=== PATIENT | female | born 1950 | race Caucasian/White ===

== ENCOUNTER 2020-05-13 13:36 | Outpatient (CLI) | payer MEDICARE, OTHER, SELFPAY ==
--- NOTE | ~2020-05-13 | DEXA_ITS ---
Bone Density Report Name: Elaine Kruse Age: 69 Sex: Female Ethnicity: White Date of : 1950 Indication: osteopenia; height loss; cancer; Referring Provider: KRZYSZTOF ALCAZAR Study: Bone densitometry was performed. Exam Date: May 13, 2020 Accession number: [id number] Bone Density: Region BMD T-score Z-score Classification AP Spine (L1-L4) 0.898 -1.4 0.9 Osteopenia Femoral Neck (Left) 0.748 -0.9 1.0 Normal Total Hip (Left) 0.812 -1.1 0.5 Osteopenia Total Hip Bilateral Avg 0.824 -1.0 0.6 Osteopenia Femoral Neck (Right) 0.727 -1.1 0.8 Osteopenia Total Hip (Right) 0.835 -0.9 0.7 Normal World Health Organization criteria for BMD impression classify patients as: Normal (T-score at or above -1.0), Osteopenia (T-score between -1.0 and -2.5), or Osteoporosis (T-score at or below -2.5). 10-year Fracture Risk(1): Major Osteoporotic Fracture 9.1% Hip Fracture 1.1% Reported Risk Factors: [place] (), Neck BMD=0.727, BMI=30.5 (1) FRAX(R) Version 3.08. Fracture probability calculated for an untreated patient. Fracture probability may be lower if the patient has received treatment. Previous Exams: Region Exam Age BMD T-score BMD Change BMD Change Date g/cm2 vs Baseline vs Previous AP Spine(L1-L4) 05/13/2020 69 0.898 -1.4 0.051(6.0%)# 0.003(0.3%) 07/01/2017 66 0.895 -1.4 0.048(5.6%)# -0.027(-2.9%)* 06/20/2015 64 0.922 -1.1 0.074(8.8%)# 0.030(3.4%)# 06/09/2011 60 0.892 -1.4 0.044(5.2%)* 0.044(5.2%)* 08/15/2003 52 0.848 -1.8 Total Hip(Left) 05/13/2020 69 0.812 -1.1 -0.013(-1.6%)# -0.017(-2.0%) 07/01/2017 66 0.829 -0.9 0.004(0.5%)# -0.050(-5.7%)* 06/20/2015 64 0.879 -0.5 0.054(6.6%)# 0.076(9.5%)# 06/09/2011 60 0.803 -1.1 -0.022(-2.7%) -0.043(-5.0%)* 08/20/2003 52 0.846 -0.8 0.020(2.5%) 0.016(2.0%) 08/20/2003 52 0.829 -0.9 0.004(0.5%) 0.004(0.5%) 08/15/2003 52 0.825 -1.0 Total Hip(Right) 05/13/2020 69 0.835 -0.9 N/A -0.6% 07/01/2017 66 0.840 -0.8 N/A -9.8%* 06/20/2015 64 0.931 -0.1 N/A 9.9%# 06/09/2011 60 0.847 -0.8 N/A -1.8% 08/20/2003 52 0.862 -0.7 N/A -0.5% 08/20/2003 52 0.866 -0.6 N/A N/A 08/15/2003 52 N/A N/A *Denotes significance at 95% confidence level, LSC for AP Spine = 0.022 g/cm2, LSC for Total Hip = 0.027 g/cm2 Clinical Information Provided by Patient:
== END 2020-05-13 13:37 | disposition home or self-care (01) ==
LOC: ANHIMG 13:39
PROVIDERS: PCP Family Medicine; Visit Provider Obstetrics & Gynecology Gynecology
DX: Z78.0 Asymptomatic menopausal state (principal); M85.80 Other specified disorders of bone density and structure, unspecified site
CPT/HCPCS: 77080

== ENCOUNTER → 2020-10-22 02:53 | Outpatient (CLI) | payer MEDICARE, OTHER, SELFPAY ==
[2020-10-22 18:08] LABS: SARS-CoV-2 RNA PCR Negative
== END ==
PROVIDERS: PCP Family Medicine; Visit Provider Internal Medicine Gastroenterology
DX: Z01.812 Encounter for preprocedural laboratory examination (principal); Z20.822 Contact with and (suspected) exposure to COVID-19
CPT/HCPCS: C9803; U0003; U0005

== ENCOUNTER 2020-10-25 01:07 | Day surgery (SDC) | payer MEDICARE, OTHER, SELFPAY ==
[2020-10-14 10:51] VITALS: BMI 33.2
[2020-10-25 11:34] VITALS: BP 124/60; PULSE 57; RESP 18; TEMP 36.3; O2SAT 96; BMI 33.7
[2020-10-25] MEDS: LACTATED RINGERS 1,000 ML 150 ML IV CONT (11:39)
--- NOTE | 2020-10-25 11:42 | WPDANESEPPF ---
Anes - Initial Pre Proc Eval Procedure: Operation Date: 10/25/20 12:30 Proposed Procedures p Colonoscopy - Osvaldo Stanton MD Date/Time: 10/25/20 11:42 Surgeon: Osvaldo Stanton MD Pre Op Diagnosis: Diarrhea Patient Data Age: 70 Gender: F Height: 5 ft 3 in Weight: 86.3 kg Last Vital Signs Temp 97.3 F L 10/25/20 11:34 Pulse 57 L 10/25/20 11:34 Resp 18 10/25/20 11:34 BP 124/60 10/25/20 11:34 Pulse Ox 96 10/25/20 11:34 Allergies Allergy/AdvReac Type Severity Reaction Status Date / Time Sulfa (Sulfonamide Allergy Severe HIVES, Verified 10/25/20 11:32 Antibiotics) DIFF. BREATHING losartan Allergy Mild Itching Verified 10/25/20 11:32 Home Medications Medication Instructions Recorded Confirmed Type anastrozole 1 mg tablet 1 mg PO DAILY 09/20/20 10/25/20 History aspirin 81 mg tablet,delayed 81 mg PO DAILY 09/20/20 10/25/20 History release esomeprazole magnesium 20 mg 20 mg PO DAILY 09/20/20 10/25/20 History capsule,delayed release indapamide 2.5 mg tablet 2.5 mg PO DAILY 09/20/20 10/25/20 History atorvastatin 10 mg tablet 10 mg PO DAILY 09/26/20 10/25/20 History brexpiprazole 0.5 mg tablet 0.5 mg PO DAILY 09/26/20 10/25/20 History ergocalciferol (vitamin D2) 1,250 1,250 mcg PO WEEKLY 09/26/20 10/25/20 History mcg (50,000 unit) capsule escitalopram oxalate 20 mg tablet 30 mg PO DAILY tablet 09/26/20 10/25/20 History gabapentin 600 mg tablet 200 mg PO BID tablet 09/26/20 10/25/20 History calcium citrate 1,000 mg PO DAILY 10/14/20 10/25/20 History igcyfpowvkzb-oyx-wfcr-FA-vit K 1 tablet PO DAILY 10/14/20 10/25/20 History [Adults Multivitamin] Patient hx anesthesia problems: none Family hx anesthesia problems: none PMFSH Past Medical History Medical History (Updated 10/25/20 @ 11:42 by Bayron Chen MD) Cerebral infarct GERD (gastroesophageal reflux disease) Hepatitis Hyperlipidemia Hypertension TIA (transient ischemic attack) Social History Social History (Updated 09/26/20 @ 13:15 by Nan Velasco CMA) Smoking status: Never smoker Alcohol intake: never Substance use: never Substance use type: does not use Living arrangements: with family Gender identity (if verbalized by the patient): Female Spiritual care concerns: No Anes - Eval Final PreProcedure Day of Procedure 10/25/20 11:42 Patient weight: overweight Heart: regular rate and rhythm Lungs: clear to auscultation Airway: Mallampati scale class II Neurological: alert and oriented Last oral intake: >/= 8 hours ASA classification: III Emergent: no Anesthetic plan: proceed Anesthesia type and monitoring: general GIVS and standard monitoring Informed Consent: The patient's anesthetic plan and its attendant risks and benefits were discussed with the patient/family/POA. Questions were solicited and answers provided to the satisfaction of the patient/family/POA.
--- NOTE | 2020-10-25 12:51 | PM.HPGS ---
History of Present Illness History of Present Illness Consent: Risks, benefits, and alternatives have been discussed and questions answered. Patient agrees to proceed with procedure. Chief complaint: Diarrhea Narrative: Elaine Kruse is a 70 year old female with loose stools better with fiber and questran, last colonoscopy 2013 Review of Systems Constitutional: Constitutional: Denies headache(s) and Denies weakness Eyes: Eyes: Denies blurry vision ENT: Reports Normal hearing present, Denies headache(s) and Denies neck pain Cardiovascular: Cardiovascular: Denies chest pain and Denies dyspnea Respiratory: Respiratory: Denies dyspnea Gastrointestinal: Gastrointestinal: Reports no additional gastrointestinal complaints Genitourinary: Genitourinary: Denies dysuria Musculoskeletal: Musculoskeletal: Denies neck pain Integumentary/Breasts: Skin/Breast: Denies dry skin Neurologic: Reports Normal hearing present, Denies headache(s) and Denies weakness Psychiatric: Psychiatric: Denies anxiety Endocrine: Endocrine: Denies change in body appearance Hematologic/Lymphatic: Hematologic/Lymphatic: Denies easy bleeding Allergic/Immunologic: Allergic/Immunologic: Denies urticaria PMFSH Past Medical History Medical History (Updated 10/25/20 @ 11:42 by Bayron Chen MD) Cerebral infarct GERD (gastroesophageal reflux disease) Hepatitis Hyperlipidemia Hypertension TIA (transient ischemic attack) Social History Social History (Updated 09/26/20 @ 13:15 by Nan Velasco CMA) Smoking status: Never smoker Alcohol intake: never Substance use: never Substance use type: does not use Living arrangements: with family Gender identity (if verbalized by the patient): Female Spiritual care concerns: No Meds Home Medications and Allergies Home Medications Medication Instructions Recorded Confirmed Type anastrozole 1 mg tablet 1 mg PO DAILY 09/20/20 10/25/20 History aspirin 81 mg tablet,delayed 81 mg PO DAILY 09/20/20 10/25/20 History release esomeprazole magnesium 20 mg 20 mg PO DAILY 09/20/20 10/25/20 History capsule,delayed release indapamide 2.5 mg tablet 2.5 mg PO DAILY 09/20/20 10/25/20 History atorvastatin 10 mg tablet 10 mg PO DAILY 09/26/20 10/25/20 History brexpiprazole 0.5 mg tablet 0.5 mg PO DAILY 09/26/20 10/25/20 History ergocalciferol (vitamin D2) 1,250 1,250 mcg PO WEEKLY 09/26/20 10/25/20 History mcg (50,000 unit) capsule escitalopram oxalate 20 mg tablet 30 mg PO DAILY tablet 09/26/20 10/25/20 History gabapentin 600 mg tablet 200 mg PO BID tablet 09/26/20 10/25/20 History calcium citrate 1,000 mg PO DAILY 10/14/20 10/25/20 History wetlhrlgbcxf-pes-ydgc-FA-vit K 1 tablet PO DAILY 10/14/20 10/25/20 History [Adults Multivitamin] Allergies Allergy/AdvReac Type Severity Reaction Status Date / Time Sulfa (Sulfonamide Allergy Severe HIVES, Verified 10/25/20 11:32 Antibiotics) DIFF. BREATHING losartan Allergy Mild Itching Verified 10/25/20 11:32 Vital Signs Vital Signs - 24 hr 10/25/20 11:34 Temperature 97.3 F L Pulse Rate 57 L Respiratory Rate 18 Blood Pressure 124/60 Pulse Oximetry 96 Exam Const: General: comfortable and no acute distress HENMT: General nose exam: Normal nares present Eyes: General: appearance normal, both eyes and all related structures Neck: Neck: no JVD Resp: Auscultation: clear to auscultation bilaterally Cardio: Rate: regular rate Rhythm: regular rhythm GI: Inspection: non-distended GI Palp: Yes Soft to palpation Skin: General skin exam: normal color Neuro: General: gait normal Speech: normal speech Extrem: General: normal to inspection Psych: Mental Status: mental status grossly normal Assessment and Plan Assessment and plan (1) Diarrhea: Code(s): R19.7 - Diarrhea, unspecified Status: Acute Assessment and Plan: colonoscopy with random colon bx, better with medical rx
[2020-10-25 13:14] VITALS: BP 93/40; PULSE 56; RESP 18; O2SAT 98
[2020-10-25 13:24] VITALS: BP 98/50; PULSE 56; RESP 14; O2SAT 100
[2020-10-25 13:34] VITALS: BP 118/64; PULSE 54; RESP 20; O2SAT 100
== END 2020-10-25 13:47 | disposition home or self-care (01) ==
PROVIDERS: PCP Family Medicine; Visit Provider Internal Medicine Gastroenterology
PROC: 0DJD8ZZ Inspection of Lower Intestinal Tract, Via Natural or Artificial Opening Endoscopic (ICD-10-PCS; CPT 45378; principal; 2020-10-25 12:30)
DX: K52.831 Collagenous colitis (principal); K52.832 Lymphocytic colitis; K57.30 Diverticulosis of large intestine without perforation or abscess without bleeding; K64.8 Other hemorrhoids; I10 Essential (primary) hypertension; E78.5 Hyperlipidemia, unspecified; K21.9 Gastro-esophageal reflux disease without esophagitis; Z86.73 Personal history of transient ischemic attack (TIA), and cerebral infarction without residual deficits; Z79.82 Long term (current) use of aspirin; Z86.19 Personal history of other infectious and parasitic diseases
CPT/HCPCS: 45380; 88305; J2704; J7120

== ENCOUNTER → 2022-01-06 13:09 | Outpatient (CLI) | payer MEDICARE, OTHER, SELFPAY ==
--- NOTE | ~2022-01-06 | XR_ITS ---
EXAMINATION: XR chest 2V 01/06/2022 13:33 INDICATION: Shortness of breath PROCEDURE: PA and lateral views the chest COMPARISON: 12/19/2015 FINDINGS: The lungs are clear. The cardiomediastinal silhouette is within normal limits. There are no pleural effusions. There is no pneumothorax suspected. There is scoliosis. No acute osseous abno rmality. Small hiatal hernia. IMPRESSION: 1: NO ACUTE CARDIOPULMONARY DISEASE. Reviewed, dictated and finalized at location B.
== END ==
PROVIDERS: PCP Family Medicine; Visit Provider Family Medicine
DX: R06.02 Shortness of breath (principal)
CPT/HCPCS: 71046

== ENCOUNTER → 2022-05-11 09:32 | Outpatient (CLI) | payer MEDICARE, OTHER, SELFPAY ==
--- NOTE | ~2022-05-11 | XR_ITS ---
EXAMINATION: XR lumbar spine 2-3V DATE: 05/11/2022 09:58 INDICATION: Low back pain TECHNIQUE: Anteroposterior and lateral views of the lumbar spine, and cone-down lateral view of the l umbosacral junction were obtained. COMPARISON: None. FINDINGS: There are 27 degrees of thoracolumbar levoscoliosis. Bone alignment is normal. There is an age-indeterminate superior endplate compression fracture of T12. There are 2 mm of anterolisthesis of L5 on S1. There is severe loss of intervertebral disc space height at L1-2. The lumbar vertebral bod y heights are maintained. There is moderate to severe facet osteoarthritis of the lower lumbar spine. IMPRESSION: 1. Age-indeterminate T12 compression fracture. 2. Severe lumbar spondylosis. Reviewed, dictated and finalized at location A.
== END ==
PROVIDERS: PCP Family Medicine; Visit Provider Family Medicine
DX: M47.896 Other spondylosis, lumbar region (principal); S22.080A Wedge compression fracture of T11-T12 vertebra, initial encounter for closed fracture; X58.XXXA Exposure to other specified factors, initial encounter
CPT/HCPCS: 72100

== ENCOUNTER → 2022-05-28 13:39 | Outpatient (CLI) | payer MEDICARE, OTHER, SELFPAY ==
--- NOTE | ~2022-05-28 | DEXA_ITS ---
Bone Density Report Name: KERRIE AVERY Age: 71 Sex: Female Ethnicity: White Date of : 1950 Indication: postmenopausal; screening for osteoporosis; height loss; inflammatory bowel disease; history of glucocorticoids; prior fracture; cancer; Referring Provider: KRZYSZTOF ALCAZAR Study: Bone densitometry was performed. Exam Date: May 28, 2022 Accession number: [id number] Bone Density: Region BMD T-score Z-score Classification AP Spine (L1-L4) 0.905 -1.3 1.0 Osteopenia Femoral Neck (Left) 0.641 -1.9 0.1 Osteopenia Total Hip (Left) 0.786 -1.3 0.4 Osteopenia Femoral Neck (Right) 0.668 -1.6 0.4 Osteopenia Total Hip (Right) 0.781 -1.3 0.4 Osteopenia Total Hip Mean 0.784 -1.3 0.4 Osteopenia World Health Organization criteria for BMD impression classify patients as: Normal (T-score at or above -1.0), Osteopenia (T-score between -1.0 and -2.5), or Osteoporosis (T-score at or below -2.5). 10-year Fracture Risk: FRAX not reported because: Prior hip or vertebral fracture Clinical Information Provided by Patient: Have had a previous hip or vertebral fracture Has had a low trauma fracture Has taken Glucocorticoids Has used the following medications: Vitamin D, Calcium, MTV, ANASTROZOLE, BUDESONIDE Has the following medical conditions: Cancer, Inflammatory bowel diseases, LEFT BREAST CA LUMPECTOMY IN 03/2018, MICROSCOPIC COLITIS Patient maximum height was 66.0 Menopause Age: 48 Drinks caffeinated beverages Onset of menses at age 12 Number of children 2 Impression: The patient has low bone mass, based on the Left Femoral Neck T-score. The patient has risk factors, including: previous fracture, history of glucocorticoid therapy. Discussion: INCREASED RISK OF FRACTURE DUE TO HISTORY OF FRACTURE. The patient's previous fracture puts the patient at high risk of a future fracture. In untreated patients, the risk of osteoporotic fracture increases approximately two-fold for each 1.0 SD decrease in T-score. Low bone density is not the only risk factor for fracture; also consider factors such as patient's age, frailty or poor health, risk of falling, risk of injury, previous osteoporotic fracture, family history of osteoporosis, cigarette smoking, low body weight, etc. Not everyone with a low trauma fracture has osteoporosis; osteomalacia and other metabolic bone disorders should also be considered. Patients who have osteoporosis should be evaluated for specific diseases and conditions (secondary causes) that may cause or contribute to bone loss and fracture risk. National Osteoporosis Foundation (NOF) recommends pharmacologic intervention for patients with a prior hip or vertebral fracture regardless of BMD T-score. The patient should follow a healthful lifestyle (good nutrition with adequate calcium and vitamin
== END ==
PROVIDERS: PCP Family Medicine; Visit Provider Obstetrics & Gynecology Gynecology
DX: Z78.0 Asymptomatic menopausal state (principal); M85.88 Other specified disorders of bone density and structure, other site; M85.852 Other specified disorders of bone density and structure, left thigh; M85.851 Other specified disorders of bone density and structure, right thigh
CPT/HCPCS: 77080

== ENCOUNTER → 2022-11-10 14:11 | Outpatient (CLI) | payer MEDICARE, OTHER, SELFPAY ==
--- NOTE | ~2022-11-10 | XR_ITS ---
EXAM: XR shoulder RT min 2V DATE: 11/10/2022 14:31 HISTORY: M25.511 - Pain in right shoulder . COMPARISON: None available. FINDINGS: Normal mineralization. No fracture or dislocation. No lytic or blastic lesion. Joint space s are maintained. No erosion or periosteal change. Soft tissues within normal limits. IMPRESSION: Normal right shoulder radiograph findings. Reviewed, dictated and finalized at location K.
== END ==
PROVIDERS: PCP Family Medicine; Visit Provider Family Medicine
DX: M25.511 Pain in right shoulder (principal)
CPT/HCPCS: 73030

== ENCOUNTER → 2022-11-12 13:19 | Outpatient (CLI) | payer MEDICARE, OTHER, SELFPAY ==
--- NOTE | ~2022-11-12 | XR_ITS ---
EXAMINATION: XR chest 2V 11/12/2022 14:13 INDICATION: Cough PROCEDURE: 2 view chest COMPARISON: 01/06/2022 FINDINGS: The lungs are clear. Moderate size hiatal hernia. The cardiomediastinal silhouette is withi n normal limits. There are no pleural effusions. There is no pneumothorax suspected. IMPRESSION: 1: NO ACUTE CARDIOPULMONARY DISEASE. Reviewed, dictated and finalized at location L.
== END ==
PROVIDERS: PCP Family Medicine; Visit Provider Family Medicine
DX: R05.9 Cough, unspecified (principal)
CPT/HCPCS: 71046

== ENCOUNTER 2024-04-14 11:29 | Outpatient (CLI) | payer MEDICARE, OTHER, SELFPAY ==
--- NOTE | ~2024-04-14 | MM_ITS ---
EXAMINATION: MM screening anette BI w juan c HISTORY: Screening mammogram TECHNIQUE: Craniocaudal and mediolateral oblique 3-D tomosynthesis images were obtained and synthetic 2-D images were generated. CAD analysis was submitted and interpreted. COMPARISON: 01/18/2018 BREAST PARENCHYMAL COMPOSITION:Not Dense. The breasts are almost entirely fatty FINDINGS: No suspicious mass, calcification, or architectural distortion are identified in either wendy ast to suggest malignancy. There has been no suspicious interval change. IMPRESSION: No mammographic evidence of malignancy. Recommend routine screening mammography in one year. BI-RADS Category 1: Negative Reviewed, dictated and finalized at location .
== END 2024-04-14 11:30 | disposition home or self-care (01) ==
LOC: MICIMG 11:30
PROVIDERS: PCP Obstetrics & Gynecology Gynecology; Visit Provider Obstetrics & Gynecology Gynecology
DX: Z12.31 Encounter for screening mammogram for malignant neoplasm of breast (principal)
CPT/HCPCS: 77063; 77067

== ENCOUNTER 2024-08-15 10:28 | Outpatient (CLI) | payer MEDICARE, OTHER, SELFPAY ==
--- NOTE | ~2024-08-15 | XR_ITS ---
Left Knee Technique: AP, lateral, and sunrise views were obtained. Clinical History: Pain Findings: No fracture or dislocation is seen. Osseous alignment is anatomic. There is mild spurring a t the lateral joint line and patella. Soft tissues are unremarkable. No joint effusion is seen. Impression: Mild degenerative spurring, as above. Reviewed, dictated and finalized at location M. A [employer] Impression: Mild degenerative spurring, as above.
== END 2024-08-15 10:29 | disposition home or self-care (01) ==
LOC: MICIMG 10:30
PROVIDERS: PCP Family Medicine; Visit Provider Family Medicine
DX: M25.562 Pain in left knee (principal)
CPT/HCPCS: 73562

== ENCOUNTER 2024-10-04 13:16 | Outpatient (CLI) | payer MEDICARE, OTHER, SELFPAY ==
--- NOTE | ~2024-10-04 | DEXA_ITS ---
Bone Density Report Name: KERRIE AVERY Age: 74 Sex: Female Ethnicity: White Date of : 1950 Indication: osteopenia; height loss; inflammatory bowel disease; history of glucocorticoids; cancer; Referring Provider: KRZYSZTOF ALCAZAR Study: Bone densitometry was performed. Exam Date: October 04, 2024 Accession number: [id number] Bone Density: Region BMD T-score Z-score Classification AP Spine(L1-L4) 0.833 -1.9 0.5 Osteopenia Femoral Neck (Left) 0.581 -2.4 -0.3 Osteopenia Total Hip (Left) 0.722 -1.8 0.0 Osteopenia Femoral Neck (Right) 0.607 -2.2 0.0 Osteopenia Total Hip (Right) 0.689 -2.1 -0.2 Osteopenia Total Hip Mean 0.706 -2.0 -0.1 Osteopenia World Health Organization criteria for BMD impression classify patients as: Normal (T-score at or above -1.0), Osteopenia (T-score between -1.0 and -2.5), or Osteoporosis (T-score at or below -2.5). 10-year Fracture Risk(1): Major Osteoporotic Fracture 23% Hip Fracture 7.7% Reported Risk Factors: [place] (), Neck BMD=0.581, BMI=32.5, glucocorticoids (1) FRAX(R) Version 3.08. Fracture probability calculated for an untreated patient. Fracture probability may be lower if the patient has received treatment. Previous Exams: Region Exam Age BMD T-score BMD Change BMD Change Date g/cm2 vs Baseline vs Previous AP Spine (L1-L4) 10/04/2024 74 0.833 -1.9 -0.089 (-9.7%) -0.065 (-7.3%) 05/13/2020 69 0.898 -1.4 -0.024 (-2.6%) 0.003 (0.3%) 07/01/2017 66 0.895 -1.4 -0.027 (-2.9%) -0.027 (-2.9%) 06/20/2015 64 0.922 -1.1 Total Hip(Left) 10/04/2024 74 0.722 -1.8 -0.158 (-17.9% -0.090 (-11.1% 05/13/2020 69 0.812 -1.1 -0.067 (-7.6%) -0.017 (-2.0%) 07/01/2017 66 0.829 -0.9 -0.050 (-5.7%) -0.050 (-5.7%) 06/20/2015 64 0.879 -0.5 Total Hip(Right) 10/04/2024 74 0.689 -2.1 -0.242 (-26.0% -0.146 (-17.4% 05/13/2020 69 0.835 -0.9 -0.096 (-10.3% -0.005 (-0.6%) 07/01/2017 66 0.840 -0.8 -0.091 (-9.8%) -0.091 (-9.8%) 06/20/2015 64 0.931 -0.1 *Denotes significance at 95% confidence level, LSC for AP Spine = 0.022 g/cm2, LSC for Total Hip = 0.027 g/cm2 Clinical Information Provided by Patient: Has taken Glucocorticoids Has used the following medications: Vitamin D, Calcium Has the following medical conditions: Cancer, Inflammatory bowel diseases Patient maximum height was 66 Drinks caffeinated beverages Onset of menses at age 12 Number of children 2 Impression: The patient has low bone mass, based on the Left Femoral Neck T-score. The patient has an estimated ten-year risk of hip fracture of 7.7% and an estimated ten-year risk of major fracture of 23%, based on the WHO FRAX algorithm. The patient has risk factors, including: history of glucocorticoid therapy. The BMD for the AP Spine (L1-L4) decreased, changing by -7.3% since the last DXA exam. The BMD for the Total Hip(Left) decreased, changing by -11.1% since the last DXA exam. The BMD for the Total Hip(Right) decreased, changing by -17.4% since the last DXA exam. Discussion: BONE DENSITY IS LOW AT ONE OR MORE SKELETAL SITES. THE PATIENT'S BMD AND CLINICAL RISK FACTORS CONTRIBUTE TO THIS PATIENT'S HIGH RISK OF FRACTURE. This patient's lowest T-score is low at one or more skeletal sites. It meets the World Health Organization's (WHO) criteria for ?low bone mass? (T-score between -1.0 and -2.5). The patient's 10-year risk of hip fracture and 10 year risk of a major osteoporotic fracture as calculated by FRAX exceeds the threshold where pharmacological therapy is recommended by the National Osteoporosis Foundation (NOF). However, all treatment decisions require clinical judgment and consideration of individual patient factors, including patient preferences, comorbidities, previous drug use, risk factors not captured in the FRAX model (e.g., frailty, falls, vitamin D deficiency, increased bone turnover, interval significant decline in bone density) and possible under or overestimation of fracture risk by FRAX. The patient should follow a healthful lifestyle (good nutrition with adequate calcium and vitamin D, and appropriate weight-bearing exercise). Follow-Up: Consider a repeat BMD and Vertebral Fracture Assessment (VFA) exam in 2 years or sooner if medically necessary, to reassess this patient's status. Reported by: GIGI on 10/04/2024 1:51:00 PM. Reviewed, dictated and finalized at location [facility]
--- OUTSIDE RECORDS SUMMARY | 2024-10-04 14:38 | XMS_ITS | Patient Health Summary ---
Author Organization [facility] Address [address] [address] Care Team Providers Care C Software Developer Name Role Phone Rnon Mack MD Primary Care Provider [phone] Note from [facility],non-owned Affiliates and Associated Physician Practices is amultiple site organization consisting of ambulatory clinics and hospital sitesin [place], [place], [place]. This disclosure is being madepursuant to the Care Everywhere program and may not contain all information available regarding this patient. Last updated 18.[facility] Allergies * Molds & Smuts(Itching) -Low Criticality * Sulfa Drugs(Skin Reactions,Shortness of Breath) -High Criticality Active Problems Problem Noted Date Diagnosed Date Hyperlipidemia 04/08/2012 Major depressive disorder, single episode 2011 Recurrent major depressive disorder 04/08/2012 Aphasia 04/08/2012 Social History Tobacco Use Types Packs/Day Years Used Date Smoking Tobacco: Never Smokeless Tobacco: Never Alcohol Use Standard Drinks/Week Comments Yes 0 (1 standard drink = 0.6 oz pur e alcohol) Sex and Gender Information Value Date Recorded Sex Assigned at Not on file Gender Identity Not on file Sexual Orientation Not on file Last Filed Vital Signs Vital Sign Reading Time Taken Comments Blood Pressure 116/67 08/30/2013 10:54 AM TIRE MAINTENANCE TECHNICIAN Pulse 64 08/30/2013 10:54 AM TIRE MAINTENANCE TECHNICIAN Temperature - - Respiratory Rate 16 08/30/2013 10:54 AM TIRE MAINTENANCE TECHNICIAN Oxygen Saturation - - Inhaled Oxygen Concentration - - Weight 92.8 kg (204 lb 8 oz) 12/20/2013 10:49 AM CDT Height 165.1 cm (5' 5 ) 05/31/2013 11:16 AM CDT Body Mass Index 34.03 05/31/2013 11:16 AM CDT Procedures * DERMATOPATHOLOGY(Performed 11/18/2017) * EKG 12-LEAD(Performed 04/13/2012) * TROPONIN I(Performed 04/08/2012) * CK + CKMB PANEL(Performed 04/08/2012) * MRI BRAIN WO CONTRAST(Performed 04/08/2012) * CBC W AUTO DIFFERENTIAL(Performed 04/08/2012) * BASIC METABOLIC PANEL (CALCIUM TOTAL)(Performed 04/08/2012) * PHOSPHORUS BLOOD(Performed 04/08/2012) * MAGNESIUM BLOOD(Performed 04/08/2012) * TROPONIN I(Performed 04/08/2012) * CK + CKMB PANEL(Performed 04/08/2012) * XR CHEST 1VW PORTABLE(Performed 04/07/2012) * DRUG ABUSE PANEL 10-20+ETHANOL URINE NO CONFIRM(Performed 04/07/2012) * URINALYSIS W/MICROSCOPIC NO CULTURE(Performed 04/07/2012) * LIPID PROFILE(Performed 04/07/2012) * COMPREHENSIVE METABOLIC PANEL(Performed 04/07/2012) * ALCOHOL ETHYL BLOOD(Performed 04/07/2012) * TRICYCLICS SCREEN BLOOD(Performed 04/07/2012) * TROPONIN I(Performed 04/07/2012) * CK + CKMB PANEL(Performed 04/07/2012) * SALICYLATE LEVEL BLOOD(Performed 04/07/2012) * ACETAMINOPHEN LEVEL(Performed 04/07/2012) * CBC W AUTO DIFFERENTIAL(Performed 04/07/2012) * CT BRAIN STROKE(Performed 04/07/2012) * CT ANGIO BRAIN AND NECK(Performed 04/07/2012) Results * DERMATOPATHOLOGY (11/18/2017 12:00 AM CDT) Case Report Dermatopathology Report Case: [id number] Authorizing Provider: Suad Le MD Collected: 11/18/2017 12:00 AM Ordering Location: [facility] DermPath Lab Received: 11/22/2017 07:10 AM Pathologist: Juan Miguel Gray MD Specimens: A) - Skin, right arm B) - Skin, right scalp C) - Skin, abdomen 4:49 PM [facility] DERMATOPATHOLOGY LABORATORY Final Diagnosis Specimen A. SKIN, right arm: POROKERATOSIS (Q82.8) Specimen B. SKIN, right scalp: SUBACUTE SPONGIOTIC DERMATITIS (L30.8) (see microscopic description and comment) Specimen C. 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 B: [place] scaly patches, a FH, scalp ears. C: R/O melanoma, nevus brown papule. 4:49 PM [facility] DERMATOPATHOLOGY LABORATORY Gross Description Specimen A: Received is one formalin filled container labeled with the patient's name and designated right arm. The specimen consists of a shave measuring [id number]. Jar 0. Specimen B: Received is one formalin filled container labeled with the patient's name and designated right scalp. The specimen consists of a punch measuring [id number]. The specimen is bisected and submitted in 1 cassette. Jar 0. Specimen C: Received is one formalin filled container labeled with the patient's name and designated abdomen. The specimen consists of a shave (2 pieces) measuring [id number] & 3m0x2cc. Jar 0. 4:49 PM [facility] DERMATOPATHOLOGY LABORATORY Microscopic Description Specimen A. SKIN, right arm: There is a sparse to moderately dense lichenoid lymphohistiocytic infiltrate, a thinned epidermis, and cornoid lamella formation. Specimen B. SKIN, right scalp: There is focal parakeratosis and spongiosis of the epidermis. In the dermis there is a mainly superficial perivascular lymphoid infiltrate. Grocott's methenamine silver (GMS) stain is negative for fungal elements in the sections examined. No eosinophils are seen. COMMENT: These histological findings are consistent with an eczematous dermatitis such as seborrheic dermatitis or an irritant contact dermatitis.. Specimen C. SKIN, abdomen: This is a junctional nevus. There is melanin pigment in the stratum corneum. There is architectural disorder characterized by a lentiginous proliferation of melanocytes between irregular nests of cells along the dermal-epidermal junction. There is underlying fibroplasia of the papillary dermis. (Junctional Abhijit's Nevus or Junctional Dysplastic Nevus) 8 4:49 PM CDT DERMATOPATHOLOGY LABORATORY Disclaimer An external and internal positive and negative controls are appropriate for the histochemical, immunohistochemical and immunofluorescence stain(s) in this case (if any), except where stated explicitly. The performance characteristics of the stain(s) cited in this report were developed and its performance characteristic determined by the Dermatopathology Laboratory at [facility]. These tests need not be, and therefore are not, approved by the [place] Food and Drug Administration. The tests are used for clinical purposes. Billing Codes Specimen Charges Stain Charges 32476 31421 86048 1 1 1 75230 1 8 4:49 PM CDT DERMATOPATHOLOGY LABORATORY Embedded Images 8 4:49 PM CDT DERMATOPATHOLOGY LABORATORY Pathology/Cytology TISSUE SPECIMEN FROM SKIN / Unknown 11/18/2017 11/22/2017 7:10 AM CDT Miscellaneous samples (specimen) TISSUE SPECIMEN FROM SKIN / Unknown 11/18/2017 11/22/2017 7:10 AM CDT Miscellaneous samples (specimen) TISSUE SPECIMEN FROM SKIN / Unknown 11/18/2017 11/22/2017 7:10 AM CDT Suad Le MD LAB - PATHOLOGY/CYTO LOGY ORDERABLES DERMATOPATHOLOGY LABORATORY [facility] Department of Dermatology [address] [place] [address] [address] [phone] * EKG 12-LEAD (04/13/2012 9:01 AM CDT) Josselin Salmeron MD ECG ORDERABLES [facility] RADIOLOGY * TROPONIN I (04/08/2012 8:46 AM CDT) Only the most recent of3 resultswithin the time period is included. Troponin I < 0.010 <0.032 ng/mL [facility] Comment: NOTE Any condition resulting in myocardial cell damage can potentially increase cardiac troponin-I levels. Published studies have documented that these conditions include, but are not limited to, angina, unstable angina, congestive heart failure, myocarditis, cardiac surgery, or invasive testing and non-cardiac related causes such as pulmonary embolism, renal failure, and sepsis. 6-8 hours are required for cardiac troponin I to increase after onset of chest pain. Troponin values generally remain elevated for 5-10 days. 04/08/2012 8:46 AM CDT 04/08/2012 8:50 AM CDT Yara Galarza MD LAB - CHEMISTRY ROSSANA GRAHAM Performing Organization Address [facility] de Phone Number [address] [phone] * CK + CKMB PANEL (04/08/2012 8:46 AM CDT) Only the most recent of3 resultswithin the time period is included. CK Total 33 30 - 200 Units/L [facility] CK-MB 0.6 0.0 - 6.6 ng/mL [facility] Comment: CKMB Reference Range 6.6 ng/mL or greater = Positive For indeterminate results, additional specimen(s) for CKMB, drawn at least one hour apart, may aid diagnosis. Positive CKMB results should be clinically interpreted in combination with total CK serum level. In patients without cardiac muscle damage, CKMB (ng/mL) is generally <2.5% of total CK enzyme activity (Units/L). Virtually all patients with acute myocardial infarction have CKMB values 6.6 ng/mL or greater for samples drawn at least 8-12 hours after the onset of chest pain. CKMB values generally remain elevated for 2-3 days. 04/08/2012 8:46 AM CDT 04/08/2012 8:50 AM CDT Yara Galarza MD LAB - CHEMISTRY ROSSANA GRAHAM [facility] [address] [phone] * MRI BRAIN WO CONTRAST (04/08/2012 7:02 AM CDT) Anatomical Region Laterality Modality Head Other Impressions 04/08/2012 10:45 AM CDT IMPRESSION: 1. No acute intracranial process. This examination has been dictated by Gerardo Shelley M.D. (resident). This report has been personally interpreted and reviewed by Derian Pena M.D. (attending radiologist). Narrative 04/08/2012 10:45 AM CDT EXAMINATION: Magnetic resonance imaging (MRI) of the brain without contrast HISTORY: Confusion TECHNIQUE: MRI of the brain was performed according to standard protocol. FINDINGS: No prior study is available for comparison. No evidence of acute or chronic hemorrhage and no evidence of acute cerebral infarction is seen. Ventricles are of normal size, shape, and morphology. There are a few foci of FLAIR hyperintensity in the bilateral periventricular white matter which are nonspecific but likely reflect small vessel ischemic disease. The corpus callosum and sella appear normal. The posterior fossa, brainstem, and craniocervical junction appear normal. The visualized portions of the orbits, mastoids and paranasal sinuses appear normal. Normal flow voids are demonstrated in the carotid arteries and basilar artery. The calvarium and visualized cervical spine appear normal. Procedure Note Natividad Pena MD - 10/31/2017 EXAMINATION: Magnetic resonance imaging (MRI) of the brain withoutcontrast HISTORY: Confusion TECHNIQUE: MRI of the brain was performed according to standardprotocol. FINDINGS: No prior study is available for comparison. No evidence of acute or chronic hemorrhage and no evidence of acutecerebral infarction is seen. Ventricles are of normal size, shape, andmorphology. There are a few foci of FLAIR hyperintensity in the bilateralperiventricular white matter which are nonspecific but likely reflect small vessel ischemic disease. The corpuscallosum and sella appear normal. The posterior fossa, brainstem, andcraniocervical junction appear normal. The visualized portions of the orbits, mastoids and paranasal sinusesappear normal. Normal flow voids are demonstrated in the carotid arteriesand basilar artery. The calvarium and visualized cervical spine appearnormal. IMPRESSION IMPRESSION: 1. No acute intracranial process. This examination has been dictated by Gerardo Shelley M.D. (resident). Thisreport has been personally interpreted and reviewed by Derian Pena M.D. (attending radiologist). Yara Galarza MD MR ORDERABLES * (ABNORMAL) CBC W AUTO DIFFERENTIAL (04/08/2012 2:20 AM CDT) Only the most recent of2 resultswithin the time period is included. WBC 8.7 3.5 - 10.5 10^3/uL [facility] RBC 4.51 3.90 - 5.00 10^6/uL [facility] Hemoglobin 14.3 12.0 - 15.5 g/dL [facility] Hematocrit 42.8 35.0 - 45.0 % [facility] MCV 94.9 81.0 - 97.0 FL [facility] MCH 31.7 28.0 - 34.0 PG [facility] MCHC 33.4 32.0 - 36.0 G/DL [facility] Platelet 250 150 - 400 10^3/uL [facility] RDW 12.2 11.2 - 14.8 % [facility] RDW-SD 41.8 36 - 50 FL [facility] MPV 10.9 9.3 - 12.8 FL [facility] Neutrophils % 70.7(H) 35.0 - 70.0 % [facility] Lymphocytes % 20.4 19.7 - 55.1 % [facility] Monocytes % 8.6 3 - 15 % [facility] Eosinophils % 0.2 0.0 - 6.0 % [facility] Basophils % 0.1 0.0 - 1.5 % [facility] Neutrophils Absolute 6.2 1.7 - 7.0 10^3/uL [facility] Lymphocyte Absolute 1.8 0.8 - 2.9 10^3/uL [facility] Monocytes Absolute 0.8(H) 0.14 - 0.66 10^3/uL [facility] Eosinophils Absolute 0.02 0.00 - 0.22 10^3/uL [facility] Basophils Absolute 0.01(L) 0.02 - 0.06 10^3/uL [facility] Differential Type AUTO DIFFERENTIAL [facility] Venous blood specimen (specimen) 04/08/2012 2:20 AM CDT 04/08/2012 3:22 AM CDT Yara Galarza MD LAB - HEMATOLOGY ORD DARLENEBLES Performing Organization Address City/[facility]/ZIP Co de Phone Number [address] [phone] * (ABNORMAL) BASIC METABOLIC PANEL (CALCIUM TOTAL) (04/08/2012 2:20 AM CDT) BUN 9 7 - 26 mg/dL [facility] LABORATORY [facility] Creatinine 0.8 0.6 - 1.2 mg/dL [facility] eGFR by MDRD > 60 ML/MIN [facility] LAB [facility] Comment: Chronic kidney disease: <60 ml/min Kidney failure: <15 ml/min Based on BSA of 1.73m2. Sodium 142 136 - 145 mmol/L [facility] Potassium 3.4(L) 3.5 - 4.5 mmol/L [facility] Chloride 107 98 - 107 mmol/L [facility] CO2 20(L) 22 - 29 mmol/L [facility] Glucose 79 70 - 115 mg/dL [facility] Calcium 9.5 8.4 - 10.2 mg/dL [facility] Anion Gap 18 8 - 18 [facility] BUN/Creatinine Ratio 11 7 - 23 [facility] Osmolality Calculation 276 270 - 300 mOsm/kg [facility] Venous blood specimen (specimen) 04/08/2012 2:20 AM CDT 04/08/2012 3:22 AM CDT Yara Galarza MD LAB - CHEMISTRY ROSSANA GRAHAM Performing Organization Address City/[facility]/ZIP Co de Phone Number [address] [phone] * PHOSPHORUS BLOOD (04/08/2012 2:20 AM CDT) Phosphorus 4.0 2.3 - 4.7 mg/dL [facility] Serum 04/08/2012 2:20 AM CDT 04/08/2012 3:22 AM CDT Yara Galarza MD LAB - CHEMISTRY ROSSANA GRAHAM Performing Organization Address City/[facility]/ZIP Co de Phone Number [address] [phone] * MAGNESIUM BLOOD (04/08/2012 2:20 AM CDT) Magnesium 2.1 1.6 - 2.6 mg/dL [facility] Serum 04/08/2012 2:20 AM CDT 04/08/2012 3:22 AM CDT Yara Galarza MD LAB - CHEMISTRY ROSSANA GRAHAM Performing Organization Address [facility] Co de Phone Number [address] [phone] * XR CHEST 1VW PORTABLE (04/07/2012 4:40 PM CDT) Anatomical Region Laterality Modality Chest Other Impressions 04/08/2012 8:19 AM CDT Impression: No acute pulmonary process. Dr. Arben Howell, have personally reviewed and interpreted this examination/study. This examination has been Dictated by Lavelle Jiménez MD. Narrative 04/08/2012 8:19 AM CDT Portable Chest, 1 View. History: Stroke Comparison: No prior studies Findings: No acute lung infiltrate, pleural effusion or pneumothorax is present. The cardiac and mediastinal silhouettes are normal allowing for portable technique. There is a rightward thoracic curvature. Procedure Note Nathan Theodore MD - 10/31/2017 Portable Chest, 1 View. History: Stroke Comparison: No prior studies Findings: No acute lung infiltrate, pleural effusion or pneumothorax is present. Thecardiac and mediastinal silhouettes are normal allowing for portabletechnique. There is a rightward thoracic curvature. IMPRESSION Impression: No acute pulmonary process. IDr. Theodore, have personally reviewed and interpreted thisexamination/study. This examination has been Dictated by Lavelle Jiménez MD. Maday Jiménez MD DIAGNOSTIC IMAGING ORDERABLES * (ABNORMAL) URINALYSIS W/MICROSCOPIC NO CULTURE (04/07/2012 4:30 PM CDT) Color UA YELLOW STRW,YELLOW [facility] Clarity UA HAZY(A) CLEAR [facility] Specific [place] Urine 1.014 1.001 - 1.030 [facility] pH UA 6.0 5.0 - 8.0 [facility] Protein UA NEGATIVE <20 mg/dL [facility] Glucose UA NEGATIVE NEGATIVE mg/dL [facility] Ketones NEGATIVE NEGATIVE mg/dL [facility] Bilirubin UA NEGATIVE NEGATIVE mg/dL [facility] Blood UA NEGATIVE NEGATIVE [facility] Nitrite UA NEGATIVE NEGATIVE [facility] Leukocyte Esterase LARGE(A) NEGATIVE [facility] Urobilinogen UA < 2.0 <2.0 mg/dL [facility] RBC Urine 1 0 - 8 /HPF [facility] WBC Urine 11(H) 0 - 2 /HPF [facility] Bacteria Urine MANY(A) <OCCASIONAL /HPF [facility] Squamous Epithelial Cells UA 16(H) 0 - 1 /HPF [facility] Mucus Urine RARE(A) NONE SEEN /LPF [facility] Urine specimen (specimen) 04/07/2012 4:30 PM CDT 04/07/2012 4:36 PM CDT Josselin Salmeron MD LAB - URINALYSIS ORD ERABLES [address] [phone] * DRUG ABUSE PANEL 10-20+ETHANOL URINE NO CONFIRM (04/07/2012 4:30 PM CDT) Amphetamines NEGATIVE NEGATIVE [facility] Comment:Positive Cutoff: >=1 000 ng/mL Barbiturate NEGATIVE NEGATIVE [facility] Comment:Positive Cutoff: >=2 00 ng/mL Benzodiazepine Screen Urine NEGATIVE NEGATIVE [facility] Comment:Positive Cutoff: >= 200 ng/mL Opiates NEGATIVE NEGATIVE [facility] Comment:Positive Cutoff: >=3 00 ng/mL Cocaine Metabolite Urine NEGATIVE NEGATIVE [facility] Comment:Positive Cutoff: >=3 00 ng/mL Phencyclidine Screen Urine NEGATIVE NEGATIVE [facility] Comment:Positive Cutoff: >=2 5 ng/mL Cannabinoids Screen Urine NEGATIVE NEGATIVE [facility] Comment:Positive Cutoff: >=5 0 ng/mL Methadone NEGATIVE NEGATIVE [facility] Comment:Positive Cutoff: >=3 00 ng/mL Note [facility] Comment: Positive results should be confirmed by another generally accepted non-immunological method such as gas chromatography or mass spectrometry. Toxicology testing by the [facility] is an aid to medical diagnosis and treatment of patients. No documented chain of custody was maintained. Results are intended to be used for clinical purposes only. Note [facility] Comment: The UTOX Panel does not screen for Propoxyphene, Meprobamate, Carisoprodol, Trazodone, [id number] medications and/or volatiles (Acetone, Isopropanol, Methanol, Ethylene Glycol). Ethanol, Salicylate, Acetaminophen, Tricyclic Antidepressants and several therapeutic drugs may be individually assayed in a serum specimen. Urine specimen (specimen) 04/07/2012 4:30 PM CDT 04/07/2012 4:36 PM CDT Josselin Salmeron MD LAB - URINE CHEMISTR Y ORDERABLES [facility] [address] [place] [address], [facility] [phone] * TRICYCLICS SCREEN BLOOD (04/07/2012 3:07 PM CDT) Tricyclic Antidepressants 224 ng/mL [facility] Comment: EXPECTED VALUES: PHARMACOKINETIC STUDIES HAVE SHOWN THERE IS A MARKED INDIVIDUAL VARIATION IN THE THERAPEUTIC AND TOXIC RESPONSE TO TRICYCLIC ANTIDEPRESSANTS AT SIMILAR BLOOD CONCENTRATIONS. CARDIAC EFFECTS HAVE BEEN DEMONSTRATED WITH TCA BLOOD LEVEL LOW 50-100 NG/ML. WITH LEVELS GREATER THAN 500 NG/ML, THE INCIDENCE OF SERIOUS CARDIAC TOXICITY INCREASES SIGNIFICANTLY. ABOVE 1000 NG/ML, SEVERE, SOMETIMES FATAL, CARDIAC AND OTHER SIDE EFFECTS OFTEN OCCUR. 04/07/2012 3:07 PM CDT 04/07/2012 4:25 PM CDT Josselin Salmeron MD LAB - CHEMISTRY ROSSANA GRAHAM [address] [phone] * (ABNORMAL) COMPREHENSIVE METABOLIC PANEL (04/07/2012 3:07 PM CDT) BUN 11 7 - 26 mg/dL [facility] Creatinine 0.9 0.6 - 1.2 mg/dL [facility] eGFR by MDRD > 60 ML/MIN [facility] LAB [facility] Comment: Chronic kidney disease: <60 ml/min Kidney failure: <15 ml/min Based on BSA of 1.73m2. Sodium 139 136 - 145 mmol/L [facility] Potassium 3.7 3.5 - 4.5 mmol/L [facility] Chloride 105 98 - 107 mmol/L [facility] CO2 18(L) 22 - 29 mmol/L [facility] Glucose 102 70 - 115 mg/dL [facility] Calcium 8.8 8.4 - 10.2 mg/dL [facility] Protein Total 6.8 6.0 - 8.3 g/dL [facility] Albumin 3.5 3.4 - 5.0 g/dL [facility] Bilirubin Total 0.4 0.2 - 1.2 mg/dL [facility] Alkaline Phosphatase 91 40 - 150 Units/L [facility] ALT 12 0 - 55 Units/L [facility] AST 18 5 - 34 Units/L [facility] Anion Gap 20(H) 8 - 18 [facility] BUN/Creatinine Ratio 12 7 - 23 [facility] Osmolality Calculation 272 270 - 300 mOsm/kg [facility] Albumin/Globulin Ratio 1.1 1.1 - 2.3 [facility] Serum 04/07/2012 3:07 PM CDT 04/07/2012 4:25 PM CDT Josselin Salmeron MD LAB - CHEMISTRY ROSSANA GRAHAM [address] [phone] * ALCOHOL ETHYL BLOOD (04/07/2012 3:07 PM CDT) Ethanol NONE DETECTED NONE DETECTED mg/dL [facility] Comment: ETHANOL LEVELS LESS THAN 10 MG/DL ARE RESULTED NONE DETECTED Venous blood specimen (specimen) 04/07/2012 3:07 PM CDT 04/07/2012 4:25 PM CDT Josselin Salmeron MD LAB - CHEMISTRY ROSSANA GRAHAM [address] [phone] * (ABNORMAL) LIPID PROFILE (04/07/2012 3:07 PM CDT) Cholesterol Total 245(H) <200 mg/dL [facility] HDL 76 > OR = 40 mg/dL [facility] Comment: ATP III classification of HDL cholesterol: <40 mg/dL Low; considered a major risk factor >60 mg/dL High; considered a negative risk factor Triglycerides 71 <150 mg/dL [facility] Comment: ATP III classification of Triglycerides: < 150 mg/dL Normal triglycerides 150-199 mg/dL Borderline-high triglycerides 200-400 mg/dL High triglycerides > 500 mg/dL Very high triglycerides LDL Calculated 155(H) 0 - 100 mg/dL [facility] Comment: ATP III classification of LDL cholesterol: <100 mg/dL Optimal 100-129 Near optimal/above optimal 130-159 Borderline high 160-189 High >190 Very high Venous blood specimen (specimen) 04/07/2012 3:07 PM CDT 04/07/2012 11:07 PM CDT Yara Galarza MD LAB - CHEMISTRY ROSSANA GRAHAM [address] [phone] * (ABNORMAL) SALICYLATE LEVEL BLOOD (04/07/2012 3:01 PM CDT) Salicylate < 5(L) 15 - 30 mg/dL [facility] Venous blood specimen (specimen) 04/07/2012 3:01 PM CDT 04/07/2012 3:10 PM CDT Josselin Salmeron MD LAB - CHEMISTRY NATEFarooq ACOSTAMARINO Performing Organization Address [facility] [place] [address], [facility] [phone] * (ABNORMAL) ACETAMINOPHEN LEVEL (04/07/2012 3:01 PM CDT) Acetaminophen < 3(L) 10 - 30 mcg/mL [facility] Comment: TOXIC RANGE: >200 AT 4 HOURS >100 AT 8 HOURS >50 AT 12 HOURS Venous blood specimen (specimen) 04/07/2012 3:01 PM CDT 04/07/2012 3:10 PM CDT Josselin Salmeorn MD LAB - CHEMISTRY ROSSANA GRAHAM Performing Organization Address [facility] de Phone Number [address] [phone] * CT BRAIN STROKE PROTOCOL (04/07/2012 2:02 PM CDT) Anatomical Region Laterality Modality Head Other Impressions 04/07/2012 5:29 PM CDT IMPRESSION: 1. No acute intracranial process. This examination has been personally reviewed and interpreted by Luigi Terrazas M.D. (attending radiologist). Report dictated by Sumit Johnson M.D. (radiology orderly). Narrative 04/07/2012 5:29 PM CDT EXAMINATION: Computed tomography (CT) of the head without contrast HISTORY: Trauma. TECHNIQUE: CT of the head was performed without contrast according to standard protocol. FINDINGS: No prior study is available for comparison. No acute intra- or extra-axial fluid collections are identified. The ventricles are of normal size, shape, and morphology. The basal cisterns are patent. No mass effect or midline shift is seen. The brody-white matter differentiation is normal. The visualized portions of the orbits, paranasal sinuses, and mastoids appear normal. No acute fracture is identified. Procedure Note Provider, MD Jose Daniel - 10/31/2017 EXAMINATION: Computed tomography (CT) of the head without contrast HISTORY: Trauma. TECHNIQUE: CT of the head was performed without contrast according tostandard protocol. FINDINGS: No prior study is available for comparison. No acute intra- or extra-axial fluid collections are identified. Theventricles are of normal size, shape, and morphology. The basal cisternsare patent. No mass effect or midline shift is seen. The brody-white matterdifferentiation is normal. The visualized portions of the orbits, paranasal sinuses, and mastoids appearnormal. No acute fracture is identified. IMPRESSION IMPRESSION: 1. No acute intracranial process. This examination has been personally reviewed and interpreted by Celine Gil (attending radiologist). Report dictated by Celine Simpson (radiology orderly). Josselin Salmeron MD CT ORDERABLES * CT ANGIO BRAIN AND NECK (04/07/2012 2:02 PM CDT) Anatomical Region Laterality Modality Head Other Impressions 04/07/2012 5:29 PM CDT IMPRESSION: 1. No acute intracranial process. 2. No evidence of aneurysm or large vessel occlusion. This examination has been personally reviewed and interpreted by Luigi Terrazas M.D. (attending radiologist). Report dictated by Sumit Johnson M.D. (radiology orderly). Narrative 04/07/2012 5:29 PM CDT EXAMINATION: Computed tomography of the head and neck without and with contrast HISTORY: Aphasia. TECHNIQUE: CT of the head was performed without contrast according to standard protocol. Then CT angiography of the head and neck was obtained after the uneventful administration of 50 cc Omnipaque 350 intravenous contrast. Three dimensional postprocessing was performed by the technologist and sent to the workstation for review. FINDINGS: Comparison is made to noncontrast head CT from the same day. Head: No acute intra- or extra-axial fluid collections are identified.The ventricles are of normal size, shape, and morphology. The basal cisterns are patent. No mass effect or midline shift is seen. The brody-white matter differentiation is normal. The visualized portions of the orbits, paranasal sinuses, and mastoids appear normal. No acute fracture is identified. Neck: There is no cervical lymphadenopathy or other soft tissue abnormality. There is mild multilevel degenerative disease of the cervical spine. Angiographic findings: The visualized aortic arch appears normal with normal configuration of the brachiocephalic vessels. The innominate artery and both subclavian arteries appear normal. The common carotid arteries and carotid bifurcations appear normal. The cervical internal carotid and vertebral arteries appear normal. The distal internal carotid arteries as well as the anterior and middle cerebral arteries appear normal. The distal vertebral arteries as well as the basilar artery and posterior cerebral arteries appear normal. No aneurysms or intracranial stenoses are identified. Procedure Note Provider, MD Jose Daniel - 10/31/2017 EXAMINATION: Computed tomography of the head and neck without and withcontrast HISTORY: Aphasia. TECHNIQUE: CT of the head was performed without contrast according tostandard protocol. Then CT angiography of the head and neck was obtainedafter the uneventful administration of 50 cc Omnipaque 350 intravenouscontrast. Three dimensional postprocessing was performed by the technologist and sent to theworkstation for review. FINDINGS: Comparison is made to noncontrast head CT from the same day. Head: No acute intra- or extra-axial fluid collections are identified.Theventricles are of normal size, shape, and morphology. The basal cisternsare patent. No mass effect or midline shift is seen. The brody-white matterdifferentiation is normal. The visualized portions of the orbits, paranasal sinuses, and mastoids appearnormal. No acute fracture is identified. Neck: There is no cervical lymphadenopathy or other soft tissueabnormality. There is mild multilevel degenerative disease of the cervicalspine. Angiographic findings: The visualized aortic arch appears normal with normal configuration of thebrachiocephalic vessels. The innominate artery and both subclavianarteries appear normal. The common carotid arteries and carotidbifurcations appear normal. The cervical internal carotid and vertebral arteries appear normal. The distal internal carotid arteries as well as the anterior and middlecerebral arteries appear normal. The distal vertebral arteries as well asthe basilar artery and posterior cerebral arteries appear normal. Noaneurysms or intracranial stenoses are identified. IMPRESSION IMPRESSION: 1. No acute intracranial process. 2. No evidence of aneurysm or large vessel occlusion. This examination has been personally reviewed and interpreted by Celine Gil (attending radiologist). Report dictated by Celine Simpson (radiology orderly). Yara Galarza MD CT ORDERABLES Care Teams C Software Developer Relationship Specialty Start Date End Date Ronn Mack MD PCP - General 10/22/09
--- OUTSIDE RECORDS SUMMARY | 2024-10-04 14:38 | XMS_ITS | Referral Summary ---
Author Organization [facility] Address [address] [place] [address] Care Team Providers Care Oracle Adf Developer Name Role Phone Ronn Mack MD Primary Care Provider [phone] Source Comments [facility],non-owned Affiliates and Associated Physician Practices is amultiple site organization consisting of ambulatory clinics and hospital sitesin [place], [place], [place] and [place]. This disclosure is being madepursuant to the Care Everywhere program and may not contain all information available regarding this patient. Last updated 18.[facility] Allergies Active Allergy Reactions Criticality Noted Date Comments Molds & Smuts Itching Low 04/08/2012 Sulfa Drugs Skin Reactions,Shortness of Breath High 04/07/2012 Active Problems Problem Noted Date Diagnosed Date [...] Comments Blood Pressure 116/67 08/30/2013 10:54 AM BOILING HOUSE HAND Pulse 64 08/30/2013 10:54 AM BOILING HOUSE HAND Temperature - - Respiratory Rate 16 08/30/2013 10:54 AM BOILING HOUSE HAND Oxygen Saturation - - Inhaled Oxygen Concentration - - Weight 92.8 kg (204 lb 8 oz) 12/20/2013 10:49 AM CDT Height 165.1 cm (5' 5 ) 05/31/2013 11:16 AM CDT Body Mass Index 34.03 05/31/2013 11:16 AM CDT Plan of Treatment Not on file Procedures Procedure Name Priority Date/Time Associated Diagnosis Comments LIPID PROFILE Routine 04/07/2012 3:07 PM CDT from Last 3 Months or Most Recently Relevant to Health Maintenance Results * (ABNORMAL) LIPID PROFILE (04/07/2012 3:07 PM CDT) Cholesterol Total 245(H) <200 mg/dL [facility] HDL 76 > OR = 40 mg/dL [facility] Comment: ATP III classification of HDL cholesterol: <40 mg/dL Low; considered a major risk factor >60 mg/dL High; considered a negative risk factor Triglycerides 71 <150 mg/dL [facility] Comment: ATP III classification of Triglycerides: < 150 mg/dL Normal triglycerides 150-199 mg/dL Borderline-high triglycerides 200-400 mg/dL High triglycerides > 500 mg/dL Very high triglycerides LDL Calculated 155(H) 0 - 100 mg/dL [facility] Comment: ATP III classification of LDL cholesterol: <100 mg/dL Optimal 100-129 Near optimal/above optimal 130-159 Borderline high 160-189 High >190 Very high Venous blood specimen (specimen) 04/07/2012 3:07 PM CDT 04/07/2012 11:07 PM CDT Yara Galarza MD LAB - CHEMISTRY [facility] Organization Address City/State/ZIP Co de Phone Number [address] [phone] from Last 3 Months or Most Recently Relevant to Health Maintenance Care Teams Oracle Adf Developer Relationship Specialty Start Date End Date Ronn Mack MD PCP - General 10/22/09
--- OUTSIDE RECORDS SUMMARY | 2024-10-04 14:38 | XMS_ITS | Referral Summary ---
Author Organization [facility] Address [address] [place] [address] Care Team Providers Care Au Pair Name Role Phone Ronn Mack MD Primary Care Provider [phone] Keli Mascorro MD Unavailable [phone] Maria T Ramirez NP Unavailable Concepcion Hoang MD Unavailable [phone] Allergies Active Allergy Reactions Criticality Noted Date Comments Losartan Swelling,Rash Medium 02/08/2018 Swelling in lips Mold Itching Low 04/08/2012 Sulfa (Sulfonamide Antibiotics) Hives,Shortness of breath,Rash High 04/07/2012 Wheat Itching Low 04/19/2018 Medications indapamide (LOZOL) 2.5 mg tablet Take 1 tablet (2.5 mg total) by mouth every morning 01/28/2018 Active atorvastatin (LIPITOR) 10 mg tablet Take 1 tablet (10 mg total) by mouth every morning 12/30/[address] (NexIUM) 20 mg capsule Take 1 capsule (20 mg total) by mouth 2 (two) times a day Active aspirin 81 mg tablet Take 1 tablet (81 mg total) by mouth every morning Active folic acid/multivit-m in/lutein (CENTRUM SILVER ORAL) Take 1 tablet by mouth every morning. Active ergocalciferol (VITAMIN D) 50,000 unit capsule TAKE 1 CAPSULE BY MOUTH THREE TIMES PER MONTH DIRECTED 02/14/2020 Active calcium citrate/vitamin D3 (CALCIUM CITRATE + D ORAL) Take by mouth Active Rexulti 1 mg tablet 08/31/2022 Active budesonide EC (ENTOCORT EC) 3 mg 24 hr capsule TAKE 1 CAPSULE BY MOUTH 3 TIMES A DAY FOR 1 MONTH 08/08/2022 Active Vyvanse 40 mg capsule Take 1 capsule (40 mg total) by mouth every morning 09/01/2022 Active anastrozole (ARIMIDEX) 1 mg tabletIndicatio ns:Malignant neoplasm of upper-outer quadrant of left breast in female, estrogen receptor positive (HCC) Take 1 tablet (1 mg total) by mouth daily 90 tablet 1 11/02/2022 Active Ingrezza 40 mg capsule 11/05/2022 Active levoFLOXacin (LEVAQUIN) 500 mg tablet Take 1 tablet (500 mg total) by mouth daily 12/14/2022 Active potassium chloride ER 10 mEq CR tablet Take 1 tablet/capsul e (10 mEq total) by mouth daily 02/25/2023 Active escitalopram (LEXAPRO) 20 mg tablet 1 tablet (20 mg total) 08/28/2023 Active Active Problems Problem Noted Date Diagnosed Date History of breast cancer 01/25/2020 Malignant neoplasm of lower- outer quadrant of left breast of female, estrogen receptor positive (CMS/HCC) 04/12/2018 Cancer Staging:Clinical stage from 04/19/2018:Stage IA(cT1b, cN0(sn), cM0, G1, ER: Positive, TN: Positive, HER2: Negative, Oncotype DX score: 13) - Signed by Cody Fontaine MD on 04/19/2018 [facility] (current) use of aromatase inhibitors 04/02/2018 Resolved Problems Problem Noted Date Diagnosed Date Resolved Date Abnormal mammogram 02/08/2018 2 Immunizations Immunization Administration Dates Next Due Influenza, Quadrivalent, Spl it, Intramuscular 08/31/2017 Influenza, Trivalent, High D ose, Split, Preservative Free, Intramuscular 04/28/2019,05/05/2018,05/18/2016,07/13 Influenza, Trivalent, IM (MDV) 09/20/2015 Influenza, Unspecified 05/05/2021,05/13/2018, Pfizer SARS-CoV-2 Monovalent Vaccination (12+ Yrs) PURPLE 06/05/2021,10/15/2020,09/24/2020 Pneumococcal Conjugate PCV 13 08/25/2016 Pneumococcal Conjugate, Unspecified 05/19/2017 Pneumococcal Polysaccharide PPV23 01/05/2014 Social History Tobacco Use Types Packs/Day Years Used Date Smoking Tobacco: Never Smokeless Tobacco: Never Alcohol Use Standard Drinks/Week Comments Not Currently 0 (1 standard drink = 0.6 oz pur e alcohol) AUDIT-C Answer Date Recorded Q1: How often do you have a drink containing alcohol? Never 06/23/2022 Q2: How many drinks containi ng alcohol do you have on a typical day when you are drinking? Patient does not drink Q3: How often do you have si x or more drinks on one occasion? Never 06/23/2022 Comments No Sex and Gender Information Value Date Recorded Sex Assigned at Not on file Legal Sex Female 4:06 AM CUSTOMER SERVICE SECURITY OFFICER Gender Identity Not on file Sexual Orientation Not on file Last Filed Vital Signs Vital Sign Reading Time Taken Comments Blood Pressure 136/78 09/14/2023 1:32 PM CUSTOMER SERVICE SECURITY OFFICER Pulse 54 09/14/2023 1:32 PM CUSTOMER SERVICE SECURITY OFFICER Temperature 36.7 C (98 F) 09/14/2023 1:32 PM CUSTOMER SERVICE SECURITY OFFICER Respiratory Rate 18 09/14/2023 1:32 PM CUSTOMER SERVICE SECURITY OFFICER Oxygen Saturation 99% 09/14/2023 1:32 PM CUSTOMER SERVICE SECURITY OFFICER Inhaled Oxygen Concentration - - Weight 87.3 kg (192 lb 6.4 oz) 09/14/2023 1:32 P M CUSTOMER SERVICE SECURITY OFFICER Height 161.3 cm (5' 3.5 ) 09/14/2023 1:32 PM CUSTOMER SERVICE SECURITY OFFICER Body Mass Index 33.55 09/14/2023 1:32 PM CUSTOMER SERVICE SECURITY OFFICER Plan of Treatment Not on file Procedures Procedure Name Priority Date/Time Associated Diagnosis Comments SCREENING MAMMOGRAM BILATERAL W ABDI Schedule RAVEN, Read RAVEN (Appt Today, Awaiting Results) 03/09/2023 2:21 PM CDT Encounter for follow-up surveillance of breast cancer Encounter for screening mammogram for malignant neoplasm of breast from Last 3 Months or Most Recently Relevant to Health Maintenance Results * Screening Mammogram Bilateral W Abdi (03/09/2023 2:21 PM CDT) Anatomical Region Laterality Modality Breast Bilateral Mammography Narrative 03/10/2023 11:46 AM CDT Mammogram Technique: Bilateral Digital Breast Tomosynthesis, Bilateral C-view 2D Screening mammogram. Views obtained: bilateral craniocaudal and bilateral mediolateral oblique. Computer Aided Detection was performed. Mammogram Findings: The present examination has been compared to prior imaging studies performed at [facility] on 01/28/2021, 03/20/2022 and 09/08/2022. There are scattered areas of fibroglandular density. There is no suspicious abnormality in either breast. Impression: There is no mammographic evidence of malignancy. Annual screening mammography is recommended. OVERALL FINAL ASSESSMENT: BI-RADS CATEGORY 1: Negative. Procedure Note Billie Guzmán MD - 03/10/2023 Mammogram Technique: Bilateral Digital Breast Tomosynthesis, Bilateral C-view 2D Screening mammogram. Views obtained: bilateral craniocaudal and bilateral mediolateral oblique. Computer Aided Detection was performed. Mammogram Findings: The present examination has been compared to prior imaging studies performed at [facility] on 01/28/2021, 03/20/2022 and 09/08/2022. There are scattered areas of fibroglandular density. There is no suspicious abnormality in either breast. Impression: There is no mammographic evidence of malignancy. Annual screening mammography is recommended. OVERALL FINAL ASSESSMENT: BI-RADS CATEGORY 1: Negative. Keli Mascorro MD IMG MAMMO PROCEDURES Fi nal Result from Last 3 Months or Most Recently Relevant to Health Maintenance Insurance MEDICARE [employer] [place] [employer] [place] [employer] [place] MEDICARE [facility] Care Teams Au Pair Relationship Specialty Start Date End Date Ronn Mack MD [address] [place] [id number] PCP - General Family Medicine 01/31/18 Keli Mascorro MD [address] [place] [address] Referring Physician Surgical Oncology 07/13/18 Maria T Ramirez NP [address] [place] [address] Nurse Practitioner Medical Oncology 12/23/21 Concepcion Hoang MD [address] [address] Gynecology 03/17/23
--- OUTSIDE RECORDS SUMMARY | 2024-10-04 14:38 | XMS_ITS | Clinical Summary ---
Author Organization [facility] Address [address] [place] [address] Care Team Providers Care Supply Planner Name Role Phone Ronn Mack MD Primary Care Provider [phone] Keli Mascorro MD Unavailable [phone] Maria T Ramirez NP Unavailable [phone] Concepcion Hoang MD Unavailable [phone] Allergies Active Allergy Reactions Criticality Noted Date [...] 04/19/2018:Stage IA(cT1b, cN0(sn), cM0, G1, ER: Positive, HI: Positive, HER2: Negative, Oncotype DX score: 13) - Signed by Cody Fontaine MD on 04/19/2018 [facility] use of [facility] 04/02/2018 Resolved [...] Conjugate, Unspecified 05/19/2017 Pneumococcal Polysaccharide PPV23 01/05/2014 Surgical History Surgery Date Site/Laterality Comments LAPAROSCOPIC CHOLECYSTECTOMY 08/02/2008 - 08/01/2009 BREAST BIOPSY 02/14/2018 Left MASTECTOMY, PARTIAL 03/07/2018 Left with sentinel lymph node biopsy COLONOSCOPY UPPER GASTROINTESTINAL ENDOSCOPY Medical History Medical History Date Comments Hypertension TIA (transient ischemic attack) Depression Arthritis Breast cancer (HCC) left Anxiety Hepatitis A Hypercholesteremia Depression Family History Medical History Relation Name Comments No Known Problems Brother Emphysema Father Breast cancer Father's Sister Heart disease Mother Relation Name Status Comments Brother Alive Father Father's Sister unkown age o f diagnosis Mother Social History Tobacco Use Types Packs/Day Years [...] on file Legal Sex Female 4:06 AM LAUNDERER HAND Gender Identity Not on file Sexual Orientation Not on file Obstetrics History Last Filed Vital Signs Vital Sign Reading Time Taken Comments Blood Pressure 136/78 09/14/2023 1:32 PM LAUNDERER HAND Pulse 54 09/14/2023 1:32 PM LAUNDERER HAND Temperature 36.7 C (98 F) 09/14/2023 1:32 PM LAUNDERER HAND Respiratory Rate 18 09/14/2023 1:32 PM LAUNDERER HAND Oxygen Saturation 99% 09/14/2023 1:32 PM LAUNDERER HAND Inhaled Oxygen Concentration - - Weight 87.3 kg (192 lb 6.4 oz) 09/14/2023 1:32 P M LAUNDERER HAND Height 161.3 cm (5' 3.5 ) 09/14/2023 1:32 PM LAUNDERER HAND Body Mass Index 33.55 09/14/2023 1:32 PM LAUNDERER HAND Plan of Treatment Health Maintenance Due Date Last Done Comments Depression Screening 1948 Fall Risk Assessment 1950 Hepatitis C Screening 1950 Osteoporosis Screening-Bone Density Scan 1948 DTaP/Tdap/Td Vaccine (1 - Tdap) 1959 Hepatitis B Screening 1966 Zoster Vaccine (1 of 2) 1967 Well Visit 65+ 2013 Covid-19 Vaccine (4 - 2023-2 5 season) 2024 06/05/2021, 10/15/2020, 09/24/2020 Influenza Vaccine (#1) 2024 , 04/28/2019, 05/13/2018, Additional history exists Pneumococcal vaccine 65+ Completed 017, 08/25/2016, 01/05/2014 Breast Cancer Screening-Mammogram Discontinued 03/09/2023, 03/20/2022, 01/28/2021, Additional history exists Procedures Procedure Name Priority Date/Time Associated Diagnosis [...] compared to prior imaging studies performed at [facility] on 01/28/2021, 03/20/2022 and 09/08/2022. There [...] compared to prior imaging studies performed at [facility] on 01/28/2021, 03/20/2022 and 09/08/2022. There are scattered areas of fibroglandular density. There is no suspicious abnormality in either breast. Impression: There is no mammographic evidence of malignancy. Annual screening mammography is recommended. OVERALL FINAL ASSESSMENT: BI-RADS CATEGORY 1: Negative. Keli Mascorro MD IMG MAMMO PROCEDURES Fi nal Result from Last 3 Months or Most Recently Relevant to Health [place] [address] MEDICARE [facility] Address: [facility] [address] [place] [address] [facility] [employer] [place] MEDICARE [employer] [place] MEDICARE [employer] Care Teams Supply Planner Relationship Specialty Start Date End Date Ronn Mack MD [address] [place] [id number] PCP - General Family Medicine 01/31/18 Keli Mascorro MD [address] [place] [address] Referring Physician Surgical Oncology 07/13/18 Maria T Ramirez NP [address] [place] [address] Nurse Practitioner Medical Oncology 12/23/21 Concepcion Hoang MD [address] [address] Gynecology 03/17/23
--- OUTSIDE RECORDS SUMMARY | 2024-10-04 14:39 | XMS_ITS | Encounter Summary ---
Author Organization [facility] Address [address] [place] [address] Phone Care Team Providers Care Printed Circuit Board Preassembler Name Role Phone Ronn Mack MD Primary Care Provider [phone] Keli Mascorro MD Unavailable [phone] Klever Devi MD Unavailable [phone] Maria T Ramirez NP Unavailable [phone] Concepcion Hoang MD Unavailable [phone] Encounter Details Date Type Department Care Team (Latest Contact Info) Description 03/07/2018 Orders Only [facility] Scanning, Provider Social History Tobacco Use Types Packs/Day Years Used Date Smoking Tobacco: Never Smokeless Tobacco: Never Alcohol Use Standard Drinks/Week Comments No 0 (1 standard drink = 0.6 oz pur e alcohol) Comments No Sex and Gender Information Value Date Recorded Sex Assigned at Not on file Legal Sex Female 4:06 AM PUBLICITY PERSON Gender Identity Not on file Sexual Orientation Not on file documented as of this encounter Plan of Treatment Not on file documented as of this encounter Procedures Procedure Name Priority Date/Time Associated Diagnosis Comments SCAN - PATHOLOGY 03/07/2018 documented in this encounter Results * SCAN - PATHOLOGY (03/07/2018) us Provider Scanning Final Result documented in this encounter Visit Diagnoses Not on filedocumented in this encounter Care Teams Printed Circuit Board Preassembler Relationship Specialty Start Date End Date Ronn Mack MD [address] [place] [id number] PCP - General Family Medicine 01/31/18 Keli Mascorro MD [address] [place] [address] Referring Physician Surgical Oncology 07/13/18 Klever Devi MD [address] [place] [address] Medical Oncologist/Oil Pipeline Operator Medical Oncology 10/17/18 10/23/21 Maria T Ramirez NP [address] [place] [address] Nurse Practitioner Medical Oncology 12/23/21 Concepcion Hoang MD [address] [address] Gynecology 03/17/23 documented as of this encounter
--- OUTSIDE RECORDS SUMMARY | 2024-10-04 14:39 | XMS_ITS | Clinical Summary ---
Author Organization [facility] Address [address] [facility] [place] [address] Care Team Providers Care Crystal Calibrator Name Role Phone Ronn Mack MD Primary Care Provider [phone] Source Comments [facility],non-owned Affiliates and Associated Physician Practices is amultiple site organization consisting of ambulatory clinics and hospital sitesin [place], [place], [place] and [place]. This disclosure is being madepursuant to the Care Everywhere program and may not contain all information available regarding this patient. Last updated 18.[facility] Allergies Active Allergy Reactions Criticality Noted Date Comments Molds & Smuts Itching Low 04/08/2012 Sulfa Drugs Skin Reactions,Shortness of Breath High 04/07/2012 Active Problems Problem Noted Date Diagnosed Date Hyperlipidemia 04/08/2012 Major depressive disorder, single episode 2011 Recurrent major depressive disorder 04/08/2012 Aphasia 04/08/2012 Family History Medical History Relation Name Comments Hypertension Mother Relation Name Status Comments Mother Social History Tobacco Use Types Packs/Day [...] Comments Blood Pressure 116/67 08/30/2013 10:54 AM CERTIFIED ADAPTIVE PHYSICAL EDUCATOR Pulse 64 08/30/2013 10:54 AM CERTIFIED ADAPTIVE PHYSICAL EDUCATOR Temperature - - Respiratory Rate 16 08/30/2013 10:54 AM CERTIFIED ADAPTIVE PHYSICAL EDUCATOR Oxygen Saturation - - Inhaled Oxygen Concentration - - Weight 92.8 kg (204 lb 8 oz) 12/20/2013 10:49 AM CDT Height 165.1 cm (5' 5 ) 05/31/2013 11:16 AM CDT Body Mass Index 34.03 05/31/2013 11:16 AM CDT Plan of Treatment Health Maintenance Due Date Last Done Comments BONE DENSITY TESTING 1950 COLOGUARD (AGES 45-75) - COL ON CA SCREENING 1948 COLON MONITORING 1948 COLONOSCOPY - COLON CA SCREENING 1948 CT COLONOGRAPHY - COLON CA SCREENING 1950 Colorectal Cancer Screening 1950 FIT - COLON CA SCREENING 1948 FLEX SIG - COLON CA SCREENING 1950 MAMMOGRAM 1950 MEDICARE AWV 12 MONTHS 1948 HEPATITIS C SCREENING 08/18/1966 DTAP/TDAP/TD VACCINES (1 - Tdap) 1967 PNEUMOCOCCAL VACCINE 50+ (1 of 1 - PCV) 1998 ZOSTER VACCINE (1 of 2) 1998 LIPID TESTING 04/07/2017 04/07/2012 Respiratory Syncytial Virus (RSV) Vaccine Pt: or over 60 yrs (1 - 1-dose 75+ series) 2023 COVID-19 VACCINE ( - 2023-2 5 season) 2024 INFLUENZA VACCINE (#1) 2024 DEPRESSION SCREENING 08/02/2024 HEPATITIS B VACCINE Aged Out No longe r eligible based on patient's age to complete this topic HIB VACCINE Aged Out No longer eligi ble based on patient's age to complete this topic HPV VACCINE Aged Out No longer eligi ble based on patient's age to complete this topic MENINGOCOCCAL (Group B) VACCINE Aged Out No longer eligible based on patient's age to complete this topic MENINGOCOCCAL VACCINE Aged Out No alonso vickey eligible based on patient's age to complete this topic Procedures Procedure Name Priority Date/Time Associated Diagnosis Comments LIPID PROFILE Routine 04/07/2012 3:07 PM CDT from Last 3 Months or Most Recently Relevant to Health Maintenance Results * (ABNORMAL) LIPID PROFILE (04/07/2012 3:07 PM CDT) Cholesterol Total 245(H) <200 mg/dL [facility] HDL 76 > OR = 40 mg/dL [facility] Comment: ATP III classification of HDL cholesterol: <40 mg/dL Low; considered a major risk factor >60 mg/dL High; considered a negative risk factor Triglycerides 71 <150 mg/dL [facility] Comment: ATP III classification of Triglycerides: < 150 mg/dL Normal triglycerides 150-199 mg/dL Borderline-high triglycerides 200-400 mg/dL High triglycerides > 500 mg/dL Very high triglycerides LDL Calculated 155(H) 0 - 100 mg/dL [facility] Comment: ATP III classification of LDL cholesterol: <100 mg/dL Optimal 100-129 Near optimal/above optimal 130-159 Borderline high 160-189 High >190 Very high Venous blood specimen (specimen) 04/07/2012 3:07 PM CDT 04/07/2012 11:07 PM CDT Yara Galarza MD LAB - CHEMISTRY ROSSA[facility] Organization Address City/State/ZIP Co de Phone Number [facility] [address] [place] [address] from Last 3 Months or Most Recently Relevant to Health Maintenance Care Teams Crystal Calibrator Relationship Specialty Start Date End Date Ronn Mack MD PCP - General 10/22/09
== END 2024-10-04 13:17 | disposition home or self-care (01) ==
LOC: ANHIMG 13:18
PROVIDERS: PCP Family Medicine; Visit Provider Obstetrics & Gynecology Gynecology
DX: M85.89 Other specified disorders of bone density and structure, multiple sites (principal); Z78.0 Asymptomatic menopausal state
CPT/HCPCS: 77080

== ENCOUNTER 2024-12-28 14:08 | Outpatient (CLI) | payer MEDICARE, OTHER, SELFPAY ==
--- NOTE | ~2024-12-28 | XR_ITS ---
XR abdomen/kub 1V 12/28/2024 14:31 Indication: Diarrhea Procedure: KUB Comparison: No prior studies for comparison. Findings: There are cholecystectomy clips. There is levoscoliosis. Nonobstructive bowel gas pattern. No abnormal calcifications. There are pelvic phleboliths. Impression: 1: No acute abdominal abnormality. Reviewed, dictated and finalized at location A. Impression: 1: No acute abdominal abnormality.
--- OUTSIDE RECORDS SUMMARY | 2024-12-28 14:13 | XMS_ITS | Referral Summary ---
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 04/02/2018 Resolved [...] on file Legal Sex 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 Gender Identity Not on file Sexual Orientation Not on file Last Filed Vital Signs Vital Sign Reading Time Taken Comments Blood Pressure 136/78 09/14/2023 1:32 PM STRAIGHTEDGE WORKER Pulse 54 09/14/2023 1:32 PM STRAIGHTEDGE WORKER Temperature 36.7 C (98 F) 09/14/2023 1:32 PM STRAIGHTEDGE WORKER Respiratory Rate 18 09/14/2023 1:32 PM STRAIGHTEDGE WORKER Oxygen Saturation 99% 09/14/2023 1:32 PM STRAIGHTEDGE WORKER Inhaled Oxygen Concentration - - Weight 87.3 kg (192 lb 6.4 oz) 09/14/2023 1:32 P M STRAIGHTEDGE WORKER Height 161.3 cm (5' 3.5) 09/14/2023 1:32 PM STRAIGHTEDGE WORKER Body Mass Index 33.55 09/14/2023 1:32 PM STRAIGHTEDGE WORKER Plan of Treatment Not on file Procedures [...] compared to prior imaging studies performed at [facility] on 01/28/2021, 03/20/2022 and 09/08/2022. There are [...] compared to prior imaging studies performed at [facility] on 01/28/2021, 03/20/2022 and 09/08/2022. There are [...] to Health Maintenance Insurance MEDICARE [employer] [employer] MEDICARE [facility] Care Teams Creping Machine Operator Relationship Specialty Start Date End Date Ronn Mack MD [address] [place] [address] PCP - General Family Medicine 01/31/18 Keli Mascorro MD [address] [place] [address] Referring Physician Surgical Oncology 07/13/18 Maria T Ramirez NP [address] [place] [address] Nurse Practitioner Medical Oncology 12/23/21 Concepcion Hoang MD [address] [address] Gynecology 03/17/23
--- OUTSIDE RECORDS SUMMARY | 2024-12-28 14:14 | XMS_ITS | Clinical Summary ---
Author Organization 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 04/02/2018 Resolved [...] on file Legal Sex Female 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 Gender Identity Not on file Sexual Orientation Not on file Obstetrics History Last Filed Vital Signs Vital Sign Reading Time Taken Comments Blood Pressure 136/78 09/14/2023 1:32 PM OCEAN FORWARDER Pulse 54 09/14/2023 1:32 PM OCEAN FORWARDER Temperature 36.7 C (98 F) 09/14/2023 1:32 PM OCEAN FORWARDER Respiratory Rate 18 09/14/2023 1:32 PM OCEAN FORWARDER Oxygen Saturation 99% 09/14/2023 1:32 PM OCEAN FORWARDER Inhaled Oxygen Concentration - - Weight 87.3 kg (192 lb 6.4 oz) 09/14/2023 1:32 P M OCEAN FORWARDER Height 161.3 cm (5' 3.5) 09/14/2023 1:32 PM OCEAN FORWARDER Body Mass Index 33.55 09/14/2023 1:32 PM OCEAN FORWARDER Plan of Treatment Health Maintenance Due Date Last Done Comments Depression Screening 1950 Fall Risk Assessment 1950 Hepatitis C Screening 1950 Osteoporosis Screening-Bone Density Scan 1950 DTaP/Tdap/Td Vaccine (1 - Tdap) 1959 Hepatitis B Screening 1966 Zoster Vaccine (1 of 2) 1967 Well Visit 65+ 2013 Covid-19 Vaccine (4 - 2023-2 5 season) 2024 06/05/2021, 10/15/2020, 09/24/2020 Influenza Vaccine (Season Ended) 2025 05/05/2021, 04/28/2019, 05/13/2018, Additional history exists Pneumococcal vaccine [...] compared to prior imaging studies performed at [facility] on 01/28/2021, 03/20/2022 and 09/08/2022. There are [...] compared to prior imaging studies performed at [facility] on 01/28/2021, 03/20/2022 and 09/08/2022. There are scattered areas of fibroglandular density. There is no suspicious abnormality in either breast. Impression: There is no mammographic evidence of malignancy. Annual screening mammography is recommended. OVERALL FINAL ASSESSMENT: BI-RADS CATEGORY 1: Negative. Keli Mascorro MD IMG MAMMO PROCEDURES Fi nal Result from Last 3 Months or Most Recently Relevant to [place] [address] MEDICARE [facility] Address: [facility] [address] [place] [address] [facility] [employer] [place] MEDICARE [employer] [place] MEDICARE [employer] Care Teams Mount Loader Relationship Specialty Start Date End Date Ronn Mack MD [address] [place] [address] PCP - General Family Medicine 01/31/18 Keli Mascorro MD [address] [place] [address] Referring Physician Surgical Oncology 07/13/18 Maria T Ramirez NP [address] [place] [address] Nurse Practitioner Medical Oncology 12/23/21 Concepcion Hoang MD [address] [address] Gynecology 03/17/23
--- OUTSIDE RECORDS SUMMARY | 2024-12-28 14:14 | XMS_ITS | Clinical Summary ---
Author Organization [facility] [employer] Address [address] [place] [address] Care Team Providers Care Baggage Inspector Name Role Phone Ronn Mack MD Primary Care Provider [phone] Source Comments [facility],non-owned Affiliates and Associated Physician Practices is amultiple site organization consisting of ambulatory clinics and hospital sitesin [place], [place], [place] and [place]. This disclosure is being madepursuant to the Care Everywhere program and may not contain all information available regarding this patient. Last updated 18.[facility] [employer] Allergies Active Allergy Reactions Criticality Noted Date [...] = 0.6 oz pur e alcohol) Comments Unknown Sex and Gender Information Value Date Recorded Sex Assigned at Not on file Legal Sex Female 6:18 PM CASHIER CREDIT Gender Identity Not on file Sexual Orientation Not on file Last Filed Vital Signs Vital Sign Reading Time Taken Comments Blood Pressure 116/67 08/30/2013 10:54 AM CASHIER CREDIT Pulse 64 08/30/2013 10:54 AM CASHIER CREDIT Temperature - - Respiratory Rate 16 08/30/2013 10:54 AM CASHIER CREDIT Oxygen Saturation - - Inhaled Oxygen Concentration - - Weight 92.8 kg (204 lb 8 oz) 12/20/2013 10:49 AM CDT Height 165.1 cm (5' 5) 05/31/2013 11:16 AM CDT Body Mass Index 34.03 05/31/2013 11:16 AM CDT Plan of Treatment Health Maintenance Due Date Last Done Comments BONE DENSITY TESTING 1950 HEPATITIS C SCREENING 08/18/1966 DTAP/TDAP/TD VACCINES (1 - Tdap) 1967 PNEUMOCOCCAL VACCINE 50+ (1 of 1 - PCV) 1998 ZOSTER VACCINE (1 of 2) 1998 Respiratory Syncytial Virus (RSV) Vaccine Pt: or over 60 yrs (1 - 1-dose 75+ series) 2023 COVID-19 VACCINE ( - 2023-2 5 season) 2024 DEPRESSION SCREENING 08/02/2024 INFLUENZA VACCINE (Season Ended) 2025 HEPATITIS B VACCINE Aged Out No longe r eligible based on patient's age to complete this topic HIB VACCINE Aged Out No longer eligi ble based on patient's age to complete this topic HPV VACCINE Aged Out No longer eligi ble based on patient's age to complete this topic MENINGOCOCCAL (Group B) VACC INE SHARED DECISION-MAKING Aged Out No longer eligibl e based on patient's age to complete this topic MENINGOCOCCAL GROUPS A/C/Y/W VACCINE Aged Out No longer eligible b ased on patient's age to complete this topic Insurance MEDICARE [facility] Member Subscriber Plan / Payer (Ef fective 2013-Present) Name:Elaine Kruse Relation to Subscriber:Self Name:ELAINE KRUSE Payer ID:Not on file Group ID:[id number] Type:Commercial Address: [place] [phone] Care Teams Baggage Inspector Relationship Specialty Start Date End Date Ronn Mack MD PCP - General 10/22/09
--- OUTSIDE RECORDS SUMMARY | 2024-12-28 14:14 | XMS_ITS | Encounter Summary ---
Author Organization 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 Gender Identity Not on file Sexual Orientation [...] on filedocumented in this encounter Care Teams Training Officer Relationship Specialty Start Date End Date Ronn Mack MD [address] [place] [address] PCP - General Family Medicine 01/31/18 Keli Mascorro MD [address] [place] [address] Referring Physician Surgical Oncology 07/13/18 Klever Devi MD [address] [place] [address] Medical Oncologist/Pool Manager Medical Oncology 10/17/18 10/23/21 Maria T Ramirez NP [address] [place] [address] Nurse Practitioner Medical Oncology 12/23/21 Concepcion Hoang MD [address] [address] Gynecology 03/17/23 documented as of this encounter
== END 2024-12-28 14:09 | disposition home or self-care (01) ==
PROVIDERS: PCP Family Medicine; Visit Provider Nurse Practitioner Family
DX: R19.7 Diarrhea, unspecified (principal)
CPT/HCPCS: 74018